=== PATIENT | male | born 1945 | race Caucasian/White ===

== ENCOUNTER 2022-01-29 08:57 | Emergency (ER) | payer OTHER ==
[~2022-01-29] VITALS: Ht 167.6 cm; Wt 64.0 kg
[2022-01-29 09:04] VITALS: BP_SYST 138
--- NOTE | 2022-01-29 09:14 | NUR ---
Placed in room 8 . Placed on satellite project site monitor, blood pressure machine and pulse oximeter. To gown for exam. Side rails up. Report given to GIANNI GILL.
--- NOTE | 2022-01-29 09:15 | NUR ---
PT BIBA AWAKE AND ALERT, AO X1. NO SOB OR DISTRESS. PT CAME FROM [facility] DUE TO UNWITNESSED FALL. C/O PAIN TO LEFT ARM. HX OF CVA, DEMENTIA, HLD, HTN, SCHIZOPHRENIA, DM2.
--- NOTE | 2022-01-29 09:16 | NUR ---
MDS DR HERNANDEZ AT BEDSIDE
[2022-01-29 09:43] LABS: BASOPHILS # (AUTO) 0.1 K/uL (0.0-0.2); BASOPHILS % (AUTO) 0.9 % (0.0-2.0); EOSINOPHILS # (AUTO) 0.1 K/uL (0.0-0.4); EOSINOPHILS % (AUTO) 0.8 % (0.0-4.0); HEMOGLOBIN 13.4 g/dL (14.0-18.0); LYMPHOCYTES # (AUTO) 1.2 K/uL (1.0-5.5); LYMPHOCYTES % (AUTO) 16.8 % (20.5-51.5); MEAN CORPUSCULAR HEMOGLOBIN 33 pg (27-31); MEAN CORPUSCULAR HGB CONC 35 % (32-36); MEAN CORPUSCULAR VOLUME 97 fL (79.0-98.0); MONOCYTES # (AUTO) 0.4 K/uL (0.0-1.0); MONOCYTES % (AUTO) 5.6 % (1.7-9.3); NEUTROPHILS # (AUTO) 5.3 K/uL (1.8-7.7); NEUTROPHILS % (AUTO) 75.9 % (40.0-70.0); PLATELET COUNT (AUTO) 146 K/uL (130-430); RED BLOOD CELL COUNT(AUTO) 4.03 MIL/uL (4.2-6.2); RED CELL DISTRIBUTION WIDTH 15.3 % (9.0-15.0)
[2022-01-29 09:59] LABS: ANION GAP 4 (5-15); CALCIUM 8.7 mg/dL (8.4-11.0); CHLORIDE 106 mmol/L (98-107); CREATININE 1.02 mg/dL (0.55-1.30); GLUCOSE 105 mg/dL (70-99); POTASSIUM 4.4 mmol/L (3.5-5.1); UREA NITROGEN, BLOOD 17 mg/dL (8-21)
[2022-01-29 10:05] LABS: ALANINE AMINOTRANSFERASE 27 U/L (12-78); ALBUMIN 3.3 g/dL (3.4-4.8); ASPARTATE AMINOTRANSFERASE 26 U/L (10-37); TOTAL BILIRUBIN 0.3 mg/dL (0.0-1.0)
[2022-01-29 10:06] LABS: ALCOHOL, BLOOD < 3 mg/dL (<10)
[2022-01-29 11:44] LABS: CHOLESTEROL 186 mg/dL (<200); HDL CHOLESTEROL 49 mg/dL (>45); LDL CHOLESTEROL 118 mg/dL (<100); TRIGLYCERIDES 123 mg/dL (30-150)
--- NOTE | 2022-01-29 12:17 | NUR ---
PT RECEIVED A POSTERIOR ARM CAST WITH A SLING BY EMT
--- NOTE | 2022-01-29 13:53 | NUR ---
Patient given written and verbal discharge instructions and verbalizes understanding. ER MD DR HERNANDEZ discussed with patient the results and treatment provided. Patient in stable condition. ID arm band removed. Patient educated on pain management and to follow up with PMD. Pain Scale 6/10. Opportunity for questions provided and answered. Medication side effect fact sheet provided.
[2022-01-29 13:54] VITALS: BP_SYST 138
== END 2022-01-29 13:54 | disposition home or self-care (01) ==
LOC: SED 08:57
DX: S52.255A Nondisplaced comminuted fracture of shaft of ulna, left arm, initial encounter for closed fracture (principal); Z79.899 Other long term (current) drug therapy; Z20.822 Contact with and (suspected) exposure to COVID-19; W18.30XA Fall on same level, unspecified, initial encounter; Y93.89 Activity, other specified; Y92.89 Other specified places as the place of occurrence of the external cause; Y99.8 Other external cause status
CPT/HCPCS: 99284; 29105; 87426; 80061; 80053; 85025; 87081; 36415; 73090; 83036; G0482